=== PATIENT | male | born 1985 | race Caucasian/White ===

== ENCOUNTER 2017-05-27 05:27 | Day surgery (SDC) | payer BC ==
[2017-05-27] MEDS ORDERED: fentaNYL 100 MCG/2 ML SDV IV ONE ×3 (05:28→06:35)
[2017-05-27] MEDS ORDERED: Midazolam 1 MG/ML 2 ML SDV IV ONE ×3 (05:28→06:36)
[2017-05-27] MEDS ORDERED: Sodium Chloride 0.9% 10 ML Syringe FLUSH PRN (06:00)
[2017-05-27] MEDS ORDERED: Dextrose 5%-0.45% NaCl 1,000 ML IV SCH (06:00)
[2017-05-27] MEDS ORDERED: Midazolam 1 MG/ML 2 ML SDV ONE (06:10)
[2017-05-27] MEDS ORDERED: fentaNYL 100 MCG/2 ML SDV ONE (06:10)
--- NOTE | 2017-05-27 08:08 | OR ---
DATE: 05/27/2017 PROCEDURE PERFORMED: Esophagogastroduodenoscopy and multiple pinch biopsies. INSTRUMENT USED: GIF-H180 Olympus video panendoscope. PREMEDICATIONS: No oral topical anesthesia used. Fentanyl 100 mcg intravenous and Versed 2 mg intravenous. The procedure was done under pulse oximetry, BP recording, and pipeline superintendent division. INDICATION: The patient with longstanding abdominal pain, bloating, as well as diarrhea, unexplained and not responsive to medical measures, on long-term PPI. Esophagogastroduodenoscopy is performed for detection of any active erosive lesions, Fuller's esophagus, and/or malignancy also under consideration, H. pylori status to be determined, small bowel biopsies to be obtained for celiac disease if indicated, endoscopic hemostasis therapy if needed. DESCRIPTION OF PROCEDURE: The scope was passed with ease. Adequate visualization of the esophagus was made from proximal to distal areas. No upper esophageal lesions identified. No distal esophageal stricture. No uphill or downhill esophageal varices. No Beatrice-Marcelo tear. No evidence of erosive esophagitis by [place] criteria. No esophageal polyp or tumor mass identified. Z-line was seen at around 40 cm distal to the oral verge, configuration consistent with grade 1 by ZAP classification. No proximal gastric varices noted. Gastric fundus examination by retroflexion showed no polypoid lesions. No gastric ulcer, malignant mass, or vascular ectasia identified. Duodenal bulb showed no ulcer. Visualized second part of the duodenum was unremarkable. Multiple pinch biopsies, 4 in number, were taken from different areas of the second part of the duodenum and sent for any histopathologic evidence of celiac disease. Multiple pinch biopsies were also taken from the duodenal bulb at 9 o'clock and 12 o'clock positions and sent for histopathology. Multiple pinch biopsies were taken from the gastric antrum and proximal body and sent for PyloriTek test for H. pylori and histopathology. No bleeding was noted from any of the visualized areas at the completion of examination. Photographs were taken of the duodenal bulb, gastric antrum, fundus, and distal esophagus. IMPRESSION: Normal study. The patient tolerated the procedure well. [facility] /[id number]
== END 2017-05-27 08:39 | disposition home or self-care (01) ==
LOC: DL.ENDO 05:27
PROVIDERS: ATTEND Internal Medicine Gastroenterology
DX: K29.80 Duodenitis without bleeding (principal)
CPT/HCPCS: 43239; 87077; J7042; J2250; J3010

== ENCOUNTER 2020-10-01 12:48 | Emergency (ER) | payer BC, OTHER ==
--- NOTE | 2020-10-01 13:22 | EDM.PDOC ---
ED HPI GENERAL MEDICAL PROBLEM - General Chief Complaint: Skin Complaint Stated Complaint: [id number] NAILS IN RIGHT FOOT Time Seen by Provider: 10/01/20 13:10 Source of Information: Reports: Patient History Limitations: Reports: No Limitations - History of Present Illness INITIAL COMMENTS - FREE TEXT/NARRATIVE: This 35 yo male patient reports to the ED due to stepping on a board with nails sticking up. The nails (2) punctured the sole of his foot through the patient's tennis shoes. The patient does not know when his last Tetanus shot was, but is in the [employer] and believes his immunizations are up to date. Onset: Today Duration: Minutes: Location: Reports: Lower Extremity, Right Quality: Reports: Ache Severity: Moderate Improves with: Reports: Rest Worsens with: Reports: Movement Context: Reports: Activity Associated Symptoms: Reports: No Other Symptoms Right Feet Pain Score (Numeric/FACES): 5 - Related Data Allergies Allergy/AdvReac Type Severity Reaction Status Date / Time No Known Allergies Allergy Verified 10/01/20 13:13 Home Meds: Home Meds . [No Known Home Meds] 10/01/20 [History] Past Medical History HEENT History: Reports: Epistaxis Cardiovascular History: Reports: None Respiratory History: Reports: None Gastrointestinal History: Reports: Chronic Diarrhea, Gastritis, GERD, Other (See Below) Other Gastrointestinal History: Hx of stomach ulcer per patient Genitourinary History: Reports: None Musculoskeletal History: Reports: Back Pain, Chronic, Neck Pain, Chronic Neurological History: Reports: None Psychiatric History: Reports: ADHD, Anxiety, Panic Attack Endocrine/Metabolic History: Reports: None Hematologic History: Reports: None Immunologic History: Reports: None Oncologic (Cancer) History: Reports: None Dermatologic History: Reports: None - Infectious Disease History Infectious Disease History: Reports: None - Past Surgical History Head Surgeries/Procedures: Reports: None HEENT Surgical History: Reports: None Cardiovascular Surgical History: Reports: None GI Surgical History: Reports: None Other GI Surgeries/Procedures: Hx of stomach ulcer Male Surgical History: Reports: None Dermatological Surgical History: Reports: Other (See Below) Social & Family History - Family History Family Medical History: No Pertinent Family History - Tobacco Use Tobacco Use Status *Q: Light Tobacco User Years of Tobacco use: 10 Packs/Tins Daily: 0.5 - Caffeine Use Caffeine Use: Reports: Coffee, Soda Other Caffeine Use: 1 coffee, 1 soda - Recreational Drug Use Recreational Drug Use: No ED ROS GENERAL - Review of Systems Review Of Systems: Comprehensive ROS is negative, except as noted in HPI. ED EXAM, SKIN/RASH Exam: See Below Exam Limited By: No Limitations General Appearance: Alert, WD/WN, Moderate Distress Eye Exam: Bilateral Eye: EOMI, Normal Inspection, PERRL Ears: Normal External Exam, Normal Canal, Hearing Grossly Normal, Normal TMs Nose: Normal Inspection, Normal Mucosa, No Blood Throat/Mouth: Normal Inspection, Normal Lips, Normal Teeth, Normal Gums, Normal Oropharynx, Normal Voice, No Airway Compromise Head: Atraumatic, Normocephalic Neck: Normal Inspection, Supple, Non-Tender, Full Range of Motion Respiratory/Chest: No Respiratory Distress, Lungs Clear, Normal Breath Sounds, No Accessory Muscle Use Cardiovascular: Normal Peripheral Pulses, Regular Rate, Rhythm (Male) Exam: Deferred Rectal (Males) Exam: Deferred Back Exam: Normal Inspection, Full Range of Motion, NT Extremities: Leg Pain (Right foot pain with puncture wounds (2) to the bottom of foot with mild bleeding) Neurological: Alert, Oriented, CN II-XII Intact, Normal Cognition, Normal Gait, Normal Reflexes, No Motor/Sensory Deficits Psychiatric: Normal Affect, Normal Mood Skin: Warm, Dry, Normal Color, No Rash Location, Skin: Lower Extremity, Right Characteristics: Other (small puncture wounds (2) ) Associated features: Tenderness Lymphatic: No Adenopathy Course - Vital Signs Last Recorded V/S: Last Vital Signs Temp 96.6 F L 10/01/20 13:06 Pulse 75 10/01/20 13:06 Resp 16 10/01/20 13:06 BP 144/96 H 10/01/20 13:06 Pulse Ox 93 L 10/01/20 13:06 - Orders/Labs/Meds Orders: Active Orders 24 hr Category Date Time Status Foot Comp Min 3V Rt [CR] Urgent Exams 10/01/20 13:16 Taken Meds: Medications Discontinued Medications Generic Name Dose Route Start Last Admin Trade Name Freq PRN Reason Stop Dose Admin Bacitracin 1 dose 10/01/20 14:13 Bacitracin Oint 1 Gm U/D Packet TOP 10/01/20 14:14 ONETIME ONE Departure - Departure Time of Disposition: 14:20 Disposition: Home, Self-Care 01 Condition: Fair Clinical Impression: Puncture wound of foot Qualifiers: Encounter type: initial encounter Laterality: right Qualified Code(s): S91.331A - Puncture wound without foreign body, right foot, initial encounter - Discharge Information *PRESCRIPTION DRUG MONITORING PROGRAM REVIEWED*: Not Applicable *COPY OF PRESCRIPTION DRUG MONITORING REPORT IN PATIENT NIC: Not Applicable Instructions: Puncture Wound, [id number] Forms: ED Department Discharge Care Plan Goals: The patient was advised of the examination and x-ray results during the visit. The patient's wounds were cleaned and dressed with a sterile dressing with antibiotic ointment during the visit. The patient was discharged with a script for Keflex (500 mg) #40 to take 1 by mouth 4 times per day for 10 days. If the patient has any additional symptoms or concerns, the patient should either return to the emergency department or visit his primary care facility. Sepsis Event Note (ED) - Evaluation Sepsis Screening Result: No Definite Risk - Focused Exam Vital Signs: Vital Signs Temp Pulse Resp BP Pulse Ox 10/01/20 13:06 96.6 F L 75 16 144/96 H 93 L - My Orders Last 24 Hours: My Active Orders 10/01/20 13:16 Foot Comp Min 3V Rt [CR] Urgent - Assessment/Plan Last 24 Hours: My Active Orders 10/01/20 13:16 Foot Comp Min 3V Rt [CR] Urgent
[2020-10-01] MEDS ORDERED: Bacitracin Oint 1 GM U/D Packet TOP ONE (14:13)
--- NOTE | 2020-10-01 15:29 | CR ---
PROCEDURE INFORMATION: Exam: XR Right Foot Exam date and time: 10/01/2020 1:28 PM Age: 35 years old Clinical indication: Injury or trauma; Other: Stepped on nail; Puncture; Foot; Right; Foreign body involvement not specified; Additional info: Stepped on board with nails sticking up TECHNIQUE: Imaging protocol: XR Right foot. Views: 3 or more views. COMPARISON: No relevant prior studies available. FINDINGS: Bones/joints: There is no evidence of acute fracture. There is no evidence of joint malalignment or dislocation. Soft tissues: There are no soft tissue masses or fluid collections. No evidence of radiopaque foreign body. IMPRESSION: 1. No evidence of acute fracture. 2. No evidence of acute dislocation. 3. No evidence of radiopaque foreign body.
== END 2020-10-01 14:32 | disposition home or self-care (01) ==
LOC: DL.ED 12:48
DX: S91.331A Puncture wound without foreign body, right foot, initial encounter (principal); Z72.0 Tobacco use; W45.0XXA Nail entering through skin, initial encounter
CPT/HCPCS: 73630-RT; 99282; 99283-25